=== PATIENT | male | born 1980 | race Caucasian/White ===

== ENCOUNTER 2023-01-09 09:42 | Emergency (ER) | payer BC, SELFPAY ==
--- NOTE | ~2023-01-09 | XR_ITS ---
EXAMINATION: XR chest 2V DATE: 01/09/2023 11:51 INDICATION: Cough. TECHNIQUE: Frontal and lateral views of the chest were obtained on 3 radiographs. COMPARISON: Chest 2 views 04/13/2019 FINDINGS: There is no pneumonia, pleural effusion, or pneumothorax. The heart size is normal. IMPRESSION: 1. No acute cardiopulmonary disease. Reviewed, dictated and finalized at location A.
--- NOTE | ~2023-01-09 | CT_ITS ---
EXAMINATION: CTA chest PE protocol DATE: 01/09/2023 13:33 INDICATION: Cough. TECHNIQUE: Computed tomography angiography (CTA) of the chest was performed with 100 mL Omnipaque-350 intravenous contrast timed to evaluate the pulmonary arteries. Coronal maximum intensity projection 3D-reconstructions were created by the technologist. Automated exposure control and iterative reconst ruction technique were employed. The dose-length product was 913.06 mGy-cm. COMPARISON: Chest 2 views 01/09/2023 FINDINGS: The lungs demonstrate minimal atelectasis. No pleural effusion. The heart size is normal. N o pericardial effusion. There is no pulmonary embolus. There is mild thoracic spondylosis. IMPRESSION: 1. No pulmonary embolus. Reviewed, dictated and finalized at location A. IMPRESSION: 1. No pulmonary embolus.
[2023-01-09 10:05] VITALS: BP 135/76; PULSE 83; RESP 16; TEMP 36.8; O2SAT 99
[2023-01-09 11:34] VITALS: BP 134/97; PULSE 72; RESP 16; O2SAT 99
[2023-01-09 12:28] LABS: Basophils Percent Auto 0.7 % (0.2-1.2); Eosinophils Percent Auto 0.7 % (0-4.4); Hematocrit 42.4 % (42.0-52.0); Hemoglobin 14.9 g/dL (14.0-18.0); Immature Granulocyte Absolute 0.02 K/mm3 (0.00-0.031); Immature Granulocyte Percent A 0.4 % (0-0.5); Lymphocytes Absolute Auto 1.07 K/mm3 (0.9-3.2); Lymphocytes Percent Auto 19.2 % (18.3-44.2); Mean Corpuscular HGB Conc 35.1 g/dl (32-36); Mean Corpuscular Hemoglobin 30.5 pg (26-34); Mean Corpuscular Volume 86.7 fl (80-100); Mean Platelet Volume 9.6 fl (7.4-10.4); Monocytes Absolute Auto 0.5 K/mm3 (0.1-0.6); Monocytes Percent Auto 8.4 % (2.6-8.5); Neutrophils Absolute Auto 3.9 K/mm3 (1.3-6.7); Neutrophils Percent Auto 70.6 % (45.5-73.1); Platelet Count Result 206 k/mm3 (150-375); Red Blood Count 4.89 M/mm3 (4.6-6.20); White Blood Count 5.6 K/mm3 (4.5-10.0)
[2023-01-09 12:38] LABS: Alanine Aminotransferase 25 U/L (6-50); Albumin Level 4.4 g/dL (3.5-5.1); Alkaline Phosphatase 73 U/L (38-126); Anion Gap 6 mmol/L (8-16); Aspartate Amino Transferase 29 U/L (17-59); Bilirubin,Total 1.1 mg/dL (0.2-1.3); Blood Urea Nitrogen 12 mg/dL (9-20); Calcium 9.2 mg/dL (8.4-10.2); Carbon Dioxide 29 mmol/L (22-30); Chloride 104 mmol/L (98-107); Estimated CRCL calculation 90 ml/min; Estimated Glomerular Filt Rate > 60; Glucose 93 mg/dL (65-110); Potassium 3.8 mmol/L (3.4-5.0); Sodium 139 mmol/L (137-145)
--- NOTE | 2023-01-09 12:44 | ED.GENADULT ---
HPI - General Adult General Chief complaint: Unspecified Stated complaint: pillow covered in blood Time Seen by Provider: 01/09/23 11:01 History of Present Illness HPI narrative: Joel Brown is a 42 y/o male who presents with reports of waking up this AM noticed he had some dried blood in his fonseca and some dried blood on his arm. He does not know where it came from. He states he has been feeling well that past few days but has noticed a little bit of a cough for 2 days. He reports that after he go up he then washed up and did not notice any wounds/ cuts. He then coughed and noticed maybe a little blood in his sputum. Related Data Home Medications Medication Instructions Recorded Confirmed lithium carbonate 300 mg 300 mg PO HS 04/13/19 12/13/19 tablet,extended release prazosin 2 mg capsule 2 mg PO HS 04/13/19 12/13/19 Allergies Allergy/AdvReac Type Severity Reaction Status Date / Time No Known Allergies Allergy Unverified 12/13/19 09:34 Review of Systems Review of Systems: CONSTITUTIONAL: Denies fever, chills, or sweats. EYES: Denies visual changes, redness, or discharge. ENT: Denies rhinorrhea, congestion, sore throat, or otalgia. CARDIOVASCULAR: Denies chest pain, palpitations, or edema. RESPIRATORY: reports mild cough for a couple days denies dyspnea. GASTROINTESTINAL: Denies abdominal pain, nausea, vomiting, or diarrhea. GENITOURINARY: Denies dysuria or hematuria. SKIN: Denies rash or itching. MUSCULOSKELETAL: Denies back pain, joint pain, or myalgia. NEUROLOGIC: Denies headache, numbness, dizziness, or weakness. PSYCHIATRIC: Denies anxiety or depression. Exam Narrative: GENERAL: Well-appearing, well-nourished, and in no acute distress. HEAD: Normocephalic, atraumatic. EYES: PERRLA and EOMI. ENT: Nares clear, no rhinorrhea or epistaxis. Mucous membranes moist. Oropharynx without tonsillar hypertrophy exudate or other lesions. Bilateral TMs pearly pavon nonbulging NECK: Supple. No adenopathy or masses. No carotid bruits or JVD CHEST: Clear to auscultation. No respiratory distress. No wheezes rales or rhonchi HEART: Regular rate and rhythm. No murmur heard. Normal peripheral pulses. ABDOMEN: Soft, nontender, nondistended, normal active bowel sounds. EXTREMITIES: Normal range of motion. No edema. SKIN: Warm, dry, no rash. NEURO: No focal deficits. Alert and oriented x3. PSYCH: Normal mood and affect. Course Vital Signs Vital signs: Vital Signs Temperature 36.8 C 01/09/23 10:05 Pulse Rate 83 01/09/23 10:05 Respiratory Rate 16 01/09/23 10:05 Blood Pressure 135/76 01/09/23 10:05 Pulse Oximetry 99 01/09/23 10:05 Temperature 36.8 C 01/09/23 10:05 Pulse Rate 88 01/09/23 12:59 Respiratory Rate 18 01/09/23 12:59 Blood Pressure 122/81 01/09/23 12:59 Pulse Oximetry 100 01/09/23 12:59 Medical Decision Making MDM Narrative Medical decision making narrative: On exam pt is alert and oriented X4 lung sounds clear bowel sounds present abdomen soft non tender on palpation No bleeding noted to his airway, nares clear TM's unremarkable. no evidence of lacerations / wounds patient expresses concern/ worry that he could have a blood clot. No PMHx since he states that he might of noticed some hemoptysis today will check basic labs/ CTA if DDimer is elevated Labs are stable DDIMER elevated CTA of chest is negative Patient re-evaluated and he reports feeling well. denies any chest pain / shortness of breath / Updated pt on lab and Ct results and plan to d/c home strict return precautions provided Patient agrees with plan and all quesitons answered. Differential Diagnosis Differential Diagnosis: anemia/ epistaxis / pulmonary embolism / dehydration Medical Records Medical records reviewed: Yes I reviewed the external patient's medical records. Vital Signs Vital Signs: Vital Signs Temperature 36.8 C 01/09/23 10:05 Pulse Rate 83
[2023-01-09 12:56] LABS: D Dimer 0.91 ug/mL (<0.48)
[2023-01-09 12:59] VITALS: BP 122/81; PULSE 88; RESP 18; O2SAT 100
--- NOTE | 2023-01-09 13:26 | PC.NURSE ---
pt to CT via wheelchair at this time
[2023-01-09 14:32] VITALS: BP 118/82; PULSE 78; RESP 18; O2SAT 100
== END 2023-01-09 14:56 | disposition home or self-care (01) ==
PROVIDERS: Emergency Provider Nurse Practitioner Family
DX: R05.1 Acute cough (principal)
CPT/HCPCS: 36415; 71046; 71275; 80053; 85025; 85380; 99284; Q9967

== ENCOUNTER 2023-03-28 13:06 | Outpatient (CLI) | payer BC, SELFPAY ==
--- NOTE | 2023-03-28 | ECG_ITS ---
Measurements Intervals [place] Rate: 78 P: 41 [place]: 162 QRS: 68 QRSD: 110 T: 39 QT: 375 QTc: 430 Interpretive Statements SINUS RHYTHM NORMAL ECG COMPARED TO ECG 04/13/2019 10:14:29 NO SIGNIFICANT CHANGES Electronically Signed On 03-28-2023 13:42:46 [employer] by Bonilla Clifford M.D.
== END 2023-03-28 13:07 | disposition home or self-care (01) ==
DX: Z51.81 Encounter for therapeutic drug level monitoring (principal); Z79.899 Other long term (current) drug therapy
CPT/HCPCS: 93005